=== PATIENT | male | born 1990 | race Two or more races ===

== ENCOUNTER 2025-03-20 21:43 | Emergency (ER) | payer OTHER ==
[~2025-03-20] VITALS: Ht 177.8 cm; Wt 75.0 kg
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
[2025-03-20 22:18] LABS: Basophils # (auto) 0 10 ^3/uL (0-0.2); Basophils % (auto) 0.4 % (0.0-2.0); Eosinophils # (auto) 0 10 ^3/uL (0-0.8); Eosinophils % (auto) 0.2 % (0.0-7.0); Hematocrit 44.6 % (41.0-53.0); Hemoglobin 15.1 g/dL (13.5-17.5); Lymphocytes # (auto) 3.8 10 ^3/uL (0.4-5.4); Lymphocytes % (auto) 39.3 % (10.0-50.0); Mean Corpuscular Hemoglobin 32.1 pg (28.0-32.0); Mean Corpuscular Hgb Conc. 33.9 g/dL (32.0-36.0); Mean Corpuscular Volume 94.9 fL (80.0-100.0); Monocytes % (auto) 10.6 % (0.0-12.0); Neutrophils # (auto) 4.7 10 ^3/uL (1.6-8.6); Neutrophils % (auto) 49.5 % (37.0-80.0); Nucleated Red Blood Cells % 0.2 %; Platelet Count (auto) 273 10^3/uL (140-450); Red Cell Distribution Width 13.6 % (11.8-14.3); White Blood Cell 9.6 10^3/uL (4.4-10.8)
[2025-03-20 22:35] LABS: Alkaline Phosphatase 77 U/L (46-116); Anion Gap 13 (5-15); Blood Alcohol 114.3 mg/dL (<10); Calcium 9.9 mg/dL (8.7-10.4); Carbon Dioxide 27 mmol/L (20-31); Chloride 102 mmol/L (98-107); Glucose 77 mg/dL (74-106); Magnesium 2.1 mg/dL (1.6-2.6); Potassium 3.5 mmol/L (3.5-5.1); Sodium 142 mmol/L (136-145); Total Protein 7.5 g/dL (5.7-8.2)
[2025-03-20 22:36] LABS: Bilirubin, Total 0.5 mg/dL (0.2-1.0)
[2025-03-20 22:37] LABS: Alanine Aminotransferase 45 U/L (7-40); Aspartate Aminotransferase 53 U/L (13-40); BUN/Creatinine Ratio 5.7 (10.0-20.0); Blood Urea Nitrogen < 5 mg/dL (9-23)
[2025-03-20 22:57] LABS: Acetaminophen < 2.0 UG/ML (10.0-20.0); Salicylate < 3.0 mg/dL (-30)
[2025-03-20] MEDS ORDERED: SILV1CRE82 TOP (23:49)
[2025-03-21] MEDS: SODIUM CHLORIDE 0.9% 1,000 ML IVB ONE (00:01)
[2025-03-21] MEDS ORDERED: CHL25C GT (00:02)
[2025-03-21] MEDS: BACITRACIN-POLYMYXIN B TOPICAL OINT UD TOP ONE (00:07)
[2025-03-21] MEDS: LORazepam 2MG/ML-1ML VIAL IV ONE (00:07)
[2025-03-21 01:00] VITALS: PULSE 87; RESP 17; O2SAT 96
[2025-03-21 02:10] VITALS: BP 136/80; PULSE 87; RESP 17; TEMP 98.5; O2SAT 97
== END 2025-03-21 02:22 | disposition home or self-care (01) ==
LOC: ER 21:43 → EDBD 21:43 → ER 03-21 02:22
DX: T23.202A Burn of second degree of left hand, unspecified site, initial encounter (principal); F10.10 Alcohol abuse, uncomplicated; Y90.6 Blood alcohol level of 120-199 mg/100 ml; Z79.899 Other long term (current) drug therapy; X58.XXXA Exposure to other specified factors, initial encounter; Y93.89 Activity, other specified; Y92.89 Other specified places as the place of occurrence of the external cause; Y99.8 Other external cause status
CPT/HCPCS: 36415; 80053; 80320; 80329; 83735; 85025; 96361; 96374; 99283; J2060; J7030